=== PATIENT | male | born 1960 | race Two or more races ===

== ENCOUNTER 2024-05-18 16:24 | Inpatient (IN) ==
[2024-05-18] MEDS ORDERED: Midazolam 5 mg/5 ml VIAL 1 mg/ml 5 ml VIAL (5 mg) ONE (16:43)
[2024-05-18] MEDS ORDERED: Heparin 2 UNITS/ML 1000 mls 2,000 ML IV ONE (16:43)
[2024-05-18] MEDS ORDERED: VERAPAMIL 2.5 MG/ML 2 ML VIAL ** 5 mg/2 ml ONE (16:43)
[2024-05-18] MEDS ORDERED: Heparin 5000 UNITS/ML 1 mL VIAL ONE (16:43)
[2024-05-18] MEDS ORDERED: fentaNYL 100 mcg/2 ml 50 MCG/ML VIAL ONE (16:43)
[2024-05-18] MEDS ORDERED: Heparin 1,000 UNIT/ML 10 ml (10,000 UNITS) CATHLAB/DIALYSIS ONE (16:43)
[2024-05-18] MEDS ORDERED: Lidocaine 1% MPF 5 ML VIAL ONE (16:44)
[2024-05-18] MEDS ORDERED: nitroGLYCERIN DRIP 25,000 MCG/250 ML BTL ONE (16:44)
[2024-05-18] MEDS: Heparin - STEMI 5,000 UNITS/ML 1 ml VIAL IV ONE (16:59)
[2024-05-18] MEDS ORDERED: Iohexol 350 (CONTRAST) 200 ML MDV IV ONE ×2 (17:05→18:07)
[2024-05-18] MEDS ORDERED: Bivalirudin 250 MG VIAL ONE (17:17)
[2024-05-18 17:20] LABS: INR 0.97 (0.83-1.13)
[2024-05-18 17:22] LABS: ABS Lymphocytes 1.6 10^3/uL (1.0-4.8); ABS Monocytes 0.4 10^3/uL (0.0-1.1); ABS Neutrophils 9.2 10^3/uL (1.5-7.6); ABS Nucleated RBC 0.01 10^3/ul; Eosinophil % 0.2 %; Hemoglobin 14.1 g/dL (13.2-16.3); Lymphocyte % 14.2 %; Mean Corpuscular Hemoglobin 30.8 pg (27-33); Mean Corpuscular Hgb Conc 32.8 g/dL (31-36); Mean Platelet Volume 9.2 fL (7.5-11.2); Nucleated Red Blood Cells % 0.1 %/100WBC (0.0-0.8); Platelet Count 252 10^3/uL (150-450); Red Blood Count 4.58 10^6/uL (4.06-5.63); Red Cell Distribution Width 14.3 % (12-17); White Blood Count 11.3 10^3/uL (3.6-10.2)
[2024-05-18 17:40] LABS: Albumin 4.6 g/dL (3.2-5.2); Albumin/Globulin Ratio 1.7 (1-3); Creatinine, Serum 0.94 mg/dL (0.67-1.17); Globulin 2.7 g/dL (2-4); Potassium 3.7 mmol/L (3.5-5.0); Total Bilirubin 0.7 mg/dL (0.2-1.0); Total Protein 7.3 g/dL (6.4-8.9); eGFR CKD-EPI 91.7 (>60)
[2024-05-18] MEDS ORDERED: Eptifibatide IV (Load dose) 2 MG/ML 10 ml VIAL ONE ×2 (17:44→17:53)
[2024-05-18] MEDS ORDERED: Atropine 0.1 MG/ML 10 ml SYR (1 mg) ONE (18:09)
[2024-05-18] MEDS ORDERED: Heparin DRIP 25,000 UNITS BAG 25,000 UNITS/250 ML BAG IV ONE (18:20)
[2024-05-18] MEDS: NS 0.9% 1000 ml BAG 1,000 ML IV SCH (20:41)
[2024-05-18] MEDS: Heparin DRIP 25,000 UNITS BAG 25,000 UNITS/250 ML BAG IV SCH (21:25)
[2024-05-18] MEDS: Heparin 5000 UNITS/ML 1 mL VIAL IV SCH (21:30)
[2024-05-18 21:59] LABS: High Sensitivity Troponin 1 Hr 17695 pg/mL (<20)
[2024-05-18] MEDS: Calcium Carb (TUMS) 500 mg CHEW TAB PO PRN (22:13)
[2024-05-19 03:59] LABS: ABS Lymphocytes 1.5 10^3/uL (1.0-4.8); ABS Monocytes 0.7 10^3/uL (0.0-1.1); ABS Neutrophils 9.1 10^3/uL (1.5-7.6); Eosinophil % 0.1 %; Hematocrit 36.5 % (38-53); Hemoglobin 12.3 g/dL (13.2-16.3); Lymphocyte % 12.9 %; Mean Corpuscular Hemoglobin 31.7 pg (27-33); Mean Corpuscular Hgb Conc 33.7 g/dL (31-36); Mean Corpuscular Volume 94.1 fL (80-97); Mean Platelet Volume 8.9 fL (7.5-11.2); Platelet Count 220 10^3/uL (150-450); Red Blood Count 3.88 10^6/uL (4.06-5.63); Red Cell Distribution Width 13.9 % (12-17); White Blood Count 11.3 10^3/uL (3.6-10.2)
[2024-05-19 04:20] LABS: Albumin 3.9 g/dL (3.2-5.2); Albumin/Globulin Ratio 1.8 (1-3); Calcium 8.8 mg/dL (8.6-10.3); Creatinine, Serum 0.83 mg/dL (0.67-1.17); Globulin 2.2 g/dL (2-4); HDL Cholesterol 54.2 mg/dL; Potassium 3.8 mmol/L (3.5-5.0); Total Protein 6.1 g/dL (6.4-8.9)
[2024-05-19] MEDS: Sulfur Hexaflouride MICROSPHR 25 MG VIAL IV ONE ×2 (05:31→16:27)
[2024-05-19] MEDS ORDERED: Flumazenil 0.5 mg/5 ml 0.1 MG/ML 5 ml VIAL ONE (13:40)
[2024-05-19] MEDS ORDERED: Naloxone 0.4 mg VIAL 0.4 mg/ml 1 ml VIAL ONE (13:40)
[2024-05-19] MEDS ORDERED: fentaNYL 100 mcg/2 ml 50 MCG/ML VIAL ONE (13:40)
[2024-05-19] MEDS ORDERED: Midazolam 5 mg/5 ml VIAL 1 mg/ml 5 ml VIAL (5 mg) ONE (13:41)
[2024-05-19] MEDS: Flumazenil 0.5 mg/5 ml 0.1 MG/ML 5 ml VIAL IV ONE (14:46)
[2024-05-19] MEDS: Naloxone 0.4 mg VIAL 0.4 mg/ml 1 ml VIAL IV PUSH PRN (14:51)
[2024-05-19] MEDS ORDERED: Flumazenil 0.5 mg/5 ml 0.1 MG/ML 5 ml VIAL IV PRN (14:56)
[2024-05-19] MEDS: fentaNYL 100 mcg/2 ml 50 MCG/ML VIAL IV SLOW PU ONE (15:03)
[2024-05-19] MEDS: Midazolam 10 mg/10 ml VIAL 1 mg/ml 10 ml VIAL (10 mg) IV SLOW PU ONE (15:03)
[2024-05-19] MEDS: nitroGLYCERIN DRIP 25,000 MCG/250 ML BTL IV SCH (17:43)
[2024-05-19] MEDS: Heparin DRIP 25,000 UNITS BAG 25,000 UNITS/250 ML BAG IV SCH ×2 (17:44→21:33)
[2024-05-19] MEDS ORDERED: Heparin 5000 UNITS/ML 1 mL VIAL IV SCH (18:00)
[2024-05-19 18:15] LABS: ABS Lymphocytes 1.2 10^3/uL (1.0-4.8); ABS Monocytes 1.1 10^3/uL (0.0-1.1); ABS Neutrophils 8.7 10^3/uL (1.5-7.6); ABS Nucleated RBC 0.01 10^3/ul; Hematocrit 38.5 % (38-53); Hemoglobin 12.9 g/dL (13.2-16.3); Lymphocyte % 11.1 %; Mean Corpuscular Hemoglobin 31.8 pg (27-33); Mean Corpuscular Hgb Conc 33.5 g/dL (31-36); Mean Corpuscular Volume 94.9 fL (80-97); Mean Platelet Volume 8.9 fL (7.5-11.2); Nucleated Red Blood Cells % 0.1 %/100WBC (0.0-0.8); Platelet Count 222 10^3/uL (150-450); Red Blood Count 4.06 10^6/uL (4.06-5.63); Red Cell Distribution Width 14.2 % (12-17)
[2024-05-19 19:00] LABS: Creatinine, Serum 0.95 mg/dL (0.67-1.17); eGFR CKD-EPI 90.5 (>60)
[2024-05-20 03:55] LABS: Hematocrit 36.7 % (38-53); Mean Corpuscular Hgb Conc 32.8 g/dL (31-36); Mean Corpuscular Volume 94.4 fL (80-97); Mean Platelet Volume 9.1 fL (7.5-11.2); Platelet Count 211 10^3/uL (150-450); Red Blood Count 3.89 10^6/uL (4.06-5.63); Red Cell Distribution Width 13.9 % (12-17); White Blood Count 14.9 10^3/uL (3.6-10.2)
[2024-05-20 04:41] LABS: Calcium 8.7 mg/dL (8.6-10.3); Creatinine, Serum 0.9 mg/dL (0.67-1.17); Magnesium 1.8 mg/dL (1.9-2.7); Phosphorus 2.8 mg/dL (2.5-5.0); Potassium 3.7 mmol/L (3.5-5.0); eGFR CKD-EPI 96.6 (>60)
[2024-05-20 05:53] LABS: ABS Lymphocytes 1.4 10^3/uL (1.0-4.8); ABS Monocytes 1.6 10^3/uL (0.0-1.1); ABS Neutrophils 11.8 10^3/uL (1.5-7.6); Lymphocyte % 9.6 %
[2024-05-20 07:43] LABS: Albumin 3.8 g/dL (3.2-5.2); Albumin/Globulin Ratio 1.7 (1-3); Direct Bilirubin 0.2 mg/dL (0.03-0.18); Globulin 2.3 g/dL (2-4); Indirect Bilirubin 1.1 mg/dL (0.3-1.0); Total Bilirubin 1.3 mg/dL (0.2-1.0); Total Protein 6.1 g/dL (6.4-8.9)
[2024-05-20] MEDS: Magnesium Sulfate 2 gm BAG 2 GM/50 ML BAG IVPB ONE (08:35)
[2024-05-20 16:00] VITALS: BP 117/81
== END 2024-05-20 18:00 | disposition home or self-care (01) | DRG 190 ==
LOC: ED 16:24 → CHICARD 16:53 → ICU 19:46